=== PATIENT | male | born 2005 | race Caucasian/White ===

== ENCOUNTER → 2024-04-19 | Outpatient (CLI) | payer SELFPAY | END | disposition home or self-care (01) | LOC: LABSPEC 12:27 | PROVIDERS: PCP Physician Assistant; Referring Provider Physician Assistant Surgical; Visit Provider Physician Assistant Surgical | DX: M25.462 Effusion, left knee (principal) | CPT/HCPCS: 87070; 87075; 87077; 87186; 87205 ==